=== PATIENT | female | born 1955 | race Hispanic/Latino ===

== ENCOUNTER 2018-01-26 18:44 | Inpatient (IN) | payer MEDICAID ==
[~2018-01-26] VITALS: Ht 144.8 cm; Wt 63.0 kg
[2018-01-26] MEDS ORDERED: GLUCAGON 1MG KIT 1 MG ML IM PRN (21:15)
[2018-01-26] MEDS ORDERED: DEXTROSE 50%-WATER 50 ML DISP.SYRIN IV PRN (21:15)
[2018-01-26 21:30] LABS: BASOPHILS % (AUTO) 0.9 % (0.0-5.0); HEMATOCRIT 30.2 % (36-48); LYMPHOCYTES % (AUTO) 11.4 % (21.0-51.0); MEAN CORPUSCULAR HGB CONC 32.7 g/dL (32.0-36.0); MONOCYTES % (AUTO) 13.2 % (3.0-13.0); NEUTROPHILS % (AUTO) 67.5 % (40.0-77.0); PLATELET COUNT (AUTO) 129 K/uL (130-400); RED BLOOD CELL COUNT(AUTO) 3.28 MIL/uL (4.00-5.50); RED CELL DISTRIBUTION WIDTH 14.6 % (11.0-15.5); WHITE BLOOD COUNT (AUTO) 7.7 K/uL (4.8-10.8)
[2018-01-26 21:44] VITALS: BP 134/66
[2018-01-26 21:47] LABS: ALBUMIN 3.3 g/dL (3.5-5.0); BILIRUBIN,TOTAL 0.3 mg/dL (0.2-1.0); POTASSIUM 5.3 mmol/L (3.5-5.1); TOTAL PROTEIN, SERUM 8.2 g/dL (6.0-8.3)
[2018-01-26 21:50] LABS: CREATININE 8.5 mg/dL (0.5-1.5)
[2018-01-26] MEDS ORDERED: ALBUTEROL SULFATE 0.083% 2.5 MG/3 ML INH IH ONE (22:47)
[2018-01-26] MEDS ORDERED: GUAIFENESIN-DM 200/20 MG 10 ML PO PRN (23:00)
[2018-01-26] MEDS ORDERED: MENTHOL TP PRN (23:00)
[2018-01-26] MEDS ORDERED: ACETAMINOPHEN 325 MG TAB PO PRN (23:00)
[2018-01-26] MEDS ORDERED: GLUCAGON 1MG KIT 1 MG ML IM SCH (23:00)
[2018-01-26] MEDS ORDERED: CLONIDINE HCL 0.1 MG TABLET PO PRN (23:00)
[2018-01-26] MEDS ORDERED: MENT118G TP (23:05)
[2018-01-26] MEDS ORDERED: LISI-613 PO (23:05)
[2018-01-26] MEDS ORDERED: LINA5TAB PO (23:05)
[2018-01-26] MEDS ORDERED: TIMO1DRO2 OP (23:05)
[2018-01-26] MEDS ORDERED: CARV3.12 PO (23:05)
[2018-01-26] MEDS ORDERED: FERSL PO (23:05)
[2018-01-26] MEDS ORDERED: ASCO500T10 PO (23:05)
[2018-01-26] MEDS ORDERED: LEVO50TA11 PO (23:05)
[2018-01-26] MEDS ORDERED: FAMO-136 PO (23:05)
[2018-01-26] MEDS ORDERED: INSU100V12 SQ ×2 (23:05→23:06)
[2018-01-26] MEDS ORDERED: CHOL500045 PO (23:05)
[2018-01-26] MEDS ORDERED: FOLI1TAB85 PO (23:05)
[2018-01-26] MEDS ORDERED: ATOR10 PO (23:05)
[2018-01-26] MEDS ORDERED: LORA10CA9 PO (23:05)
[2018-01-26] MEDS ORDERED: LATA7.5D OP (23:05)
[2018-01-26] MEDS ORDERED: CYCL30DR OP (23:05)
[2018-01-26] MEDS ORDERED: CLON.1 PO (23:05)
[2018-01-26] MEDS ORDERED: GLUC1KIT6 IJ (23:05)
[2018-01-26] MEDS ORDERED: ACET-2247 PO (23:05)
[2018-01-26] MEDS ORDERED: EXEN2VIA SQ (23:05)
[2018-01-26] MEDS ORDERED: GUAI237L82 PO (23:05)
[2018-01-26] MEDS: 1/2 NORMAL SALINE 1,000 ML IV SCH (23:33)
[2018-01-26 23:38] VITALS: BP 126/54
[2018-01-27 03:53] VITALS: BP 125/54
[2018-01-27 04:40] LABS: HEMATOCRIT 29.9 % (36-48); MEAN CORPUSCULAR HEMOGLOBIN 29.5 pg (27.0-33.0); MEAN CORPUSCULAR VOLUME 92.2 fL (79-99); PLATELET COUNT (AUTO) 114 K/uL (130-400); RED BLOOD CELL COUNT(AUTO) 3.25 MIL/uL (4.00-5.50); RED CELL DISTRIBUTION WIDTH 14.3 % (11.0-15.5); WHITE BLOOD COUNT (AUTO) 6.6 K/uL (4.8-10.8)
[2018-01-27] MEDS ORDERED: FERR220E6 PO (04:41)
[2018-01-27 04:51] LABS: ALBUMIN 3.2 g/dL (3.5-5.0); BILIRUBIN,TOTAL 0.3 mg/dL (0.2-1.0); TOTAL PROTEIN, SERUM 7.8 g/dL (6.0-8.3)
[2018-01-27 04:59] LABS: CREATININE 8.7 mg/dL (0.5-1.5)
[2018-01-27] MEDS: INSULIN LISPRO 100 UNIT/ML 3ML SQ SCH ×2 (05:55→16:30)
[2018-01-27] MEDS ORDERED: LEVOTHYROXINE 50 MCG TABLET ONE (06:26)
[2018-01-27] MEDS: LEVOTHYROXINE 50 MCG TABLET PO SCH (06:27)
[2018-01-27] MEDS ORDERED: HUMALOG PO SS1 SQ SCH (07:30)
[2018-01-27] MEDS ORDERED: CHOLECALCIFEROL 5000 UNIT PO SCH (08:00)
[2018-01-27 08:33] VITALS: BP 133/78
[2018-01-27] MEDS ORDERED: [UNRECOGNIZED DRUG - OTHER] IV SCH (09:00)
[2018-01-27] MEDS: CYCLOSPORINE OP SCH ×2 (09:00→20:26)
[2018-01-27] MEDS: FERROUS SULFATE 300 MG/5 ML LIQ UDCUP PO SCH ×4 (09:00→21:00)
[2018-01-27] MEDS: INSULIN GLARGINE 100 UNITS/ML 10 ML VIAL SQ SCH ×2 (09:00→16:30)
[2018-01-27] MEDS: SODIUM BICARBONATE 650 MG TAB PO SCH ×3 (09:30→17:12)
[2018-01-27] MEDS: LINAGLIPTIN 5 MG TABLET PO SCH (09:30)
[2018-01-27] MEDS: ASCORBIC ACID 500 MG TAB PO SCH ×2 (09:32→20:21)
[2018-01-27] MEDS: FOLIC ACID/VITAMIN B COMP W-C 1 MG CAPSULE PO SCH (09:32)
[2018-01-27] MEDS: LORATADINE 10 MG TABLET PO SCH (09:33)
[2018-01-27] MEDS: FAMOTIDINE 20MG TAB 20 MG TAB PO SCH (09:33)
[2018-01-27] MEDS: CARVEDILOL 3.125 MG TABLET PO SCH ×2 (09:33→20:21)
[2018-01-27] MEDS ORDERED: HYDROXYZINE HCL 25 MG TABLET PO PRN (09:55)
[2018-01-27 11:29] VITALS: BP 148/59
[2018-01-27 16:47] VITALS: BP 118/47
[2018-01-27] MEDS: 1/2 NORMAL SALINE 1,000 ML IV SCH (17:15)
[2018-01-27 20:20] VITALS: BP 129/52
[2018-01-27] MEDS: ATORVASTATIN CALCIUM 20 MG TABLET PO SCH (20:21)
[2018-01-27] MEDS: TIMOLOL MALEATE 0.5% 5 ML BOTTLE OP SCH (21:58)
[2018-01-27] MEDS: LATANOPROST 2.5 ML DROPS OP SCH (21:58)
[2018-01-28] VITALS (13 sets, daily range): BP systolic 107–148; BP diastolic 39–74
[2018-01-28 05:04] LABS: HEMATOCRIT 26.6 % (36-48); MEAN CORPUSCULAR HEMOGLOBIN 30.2 pg (27.0-33.0); MEAN CORPUSCULAR HGB CONC 33.3 g/dL (32.0-36.0); MEAN CORPUSCULAR VOLUME 90.8 fL (79-99); PLATELET COUNT (AUTO) 110 K/uL (130-400); RED BLOOD CELL COUNT(AUTO) 2.93 MIL/uL (4.00-5.50); WHITE BLOOD COUNT (AUTO) 5.8 K/uL (4.8-10.8)
[2018-01-28 05:11] LABS: INR 1.04 (0.85-1.15); PROTHROMBIN TIME 10.9 SEC (9.6-11.6)
[2018-01-28 05:15] LABS: BAND NEUTROPHILS % (MANUAL) 1 % (0-2); EOSINOPHILS % (MANUAL) 6 % (1-6); LYMPHOCYTES % (MANUAL) 12 % (22-44); MONOCYTES % (MANUAL) 4 % (2-9); PHOSPHORUS 6.5 mg/dL (2.5-4.9); POTASSIUM 4.5 mmol/L (3.5-5.1); SEGMENTED NEUTROPHILS % 77 % (40-70)
[2018-01-28 05:16] LABS: MAN.DIFF COMMENT-IMPRESSION MANUAL DIFFERENTIAL; PLATELET MORPHOLOGY COMMENT SLIGHTLY DECREASED
[2018-01-28 05:20] LABS: CREATININE 8.9 mg/dL (0.5-1.5)
[2018-01-28 05:31] LABS: APPEARANCE,URINE Cloudy (CLEAR); BILIRUBIN,URINE Negative (NEGATIVE); COLOR,URINE Yellow (YELLOW); GLUCOSE, URINE (UA) Negative (NEGATIVE); KETONES,URINE Trace mg/dL (NEGATIVE); LEUKOCYTE ESTERASE ,URINE Large (NEGATIVE); NITRATE,URINE Negative (NEGATIVE); OCCULT BLOOD,URINE Negative (NEGATIVE); PROTEIN,URINE POS 2+ (NEGATIVE); UROBILINOGEN,URINE 0.2 mg/dL (0.2-1.0)
[2018-01-28 05:34] LABS: CREATININE,URINE RANDOM 112 mg/dL (30-135); PROTEIN,URINE RANDOM 152.9 mg/dL (0-11.9)
[2018-01-28 05:40] LABS: BACTERIA,URINE Moderate /HPF (None Seen); MUCUS,URINE Moderate LPF (None Seen); RBC,URINE 0-1 /HPF (0-1); SQUAMOUS EPITHELIAL CELL,UR Moderate /HPF (0-2)
[2018-01-28] MEDS: LEVOTHYROXINE 50 MCG TABLET PO SCH (05:48)
[2018-01-28 05:55] LABS: % IRON SATURATION 146.5 % (22-44)
[2018-01-28] MEDS: INSULIN LISPRO 100 UNIT/ML 3ML SQ SCH ×2 (06:13→16:30)
[2018-01-28] MEDS: FAMOTIDINE 20MG TAB 20 MG TAB PO SCH (08:00)
[2018-01-28] MEDS: FOLIC ACID/VITAMIN B COMP W-C 1 MG CAPSULE PO SCH (08:00)
[2018-01-28] MEDS: LORATADINE 10 MG TABLET PO SCH (08:00)
[2018-01-28] MEDS: ASCORBIC ACID 500 MG TAB PO SCH ×2 (08:00→21:29)
[2018-01-28] MEDS: SODIUM BICARBONATE 650 MG TAB PO SCH (08:00)
[2018-01-28] MEDS: CARVEDILOL 3.125 MG TABLET PO SCH (08:01)
[2018-01-28] MEDS: FERROUS SULFATE 300 MG/5 ML LIQ UDCUP PO SCH ×2 (08:06→08:21)
[2018-01-28] MEDS: CYCLOSPORINE OP SCH ×2 (08:21→21:00)
[2018-01-28] MEDS: LINAGLIPTIN 5 MG TABLET PO SCH (08:21)
[2018-01-28] MEDS: INSULIN GLARGINE 100 UNITS/ML 10 ML VIAL SQ SCH ×2 (08:21→16:30)
[2018-01-28] MEDS ORDERED: EPOETIN ALFA 10,000 UNIT/ML VIAL SQ SCH (09:00)
[2018-01-28] MEDS ORDERED: LIDOCAINE HCL 1% MDV 50ML VIAL ONE (09:28)
[2018-01-28 09:35] LABS: HEMATOCRIT 27.2 % (36-48); MEAN CORPUSCULAR HEMOGLOBIN 30.4 pg (27.0-33.0); MEAN CORPUSCULAR HGB CONC 33.3 g/dL (32.0-36.0); MEAN CORPUSCULAR VOLUME 91.3 fL (79-99); PLATELET COUNT (AUTO) 100 K/uL (130-400); RED BLOOD CELL COUNT(AUTO) 2.98 MIL/uL (4.00-5.50); RED CELL DISTRIBUTION WIDTH 14.1 % (11.0-15.5); WHITE BLOOD COUNT (AUTO) 5.4 K/uL (4.8-10.8)
[2018-01-28 09:45] LABS: POTASSIUM 4.6 mmol/L (3.5-5.1)
[2018-01-28 10:09] LABS: INR 1.05 (0.85-1.15)
[2018-01-28 10:15] LABS: CREATININE 8.8 mg/dL (0.5-1.5)
[2018-01-28 13:53] LABS: HEMOGLOBIN A1C 5.7 % (4.0-6.0)
[2018-01-28 13:59] LABS: ALBUMIN 2.8 g/dL (3.5-5.0)
[2018-01-28] MEDS ORDERED: HEPARIN SODIUM 5000UNIT/ML 1ML VIAL IJ PRN (15:45)
[2018-01-28] MEDS ORDERED: 0.9% SODIUM CHLORIDE 250 ML IV BAG IV PRN (15:45)
[2018-01-28] MEDS ORDERED: ALBUMIN (HUMAN) 25% 100 ML IV PRN (15:45)
[2018-01-28] MEDS ORDERED: SODIUM CHLORIDE 0.9% 1000ML 1,000 ML IV PRN (15:45)
[2018-01-28] MEDS: TIMOLOL MALEATE 0.5% 5 ML BOTTLE OP SCH (21:29)
[2018-01-28] MEDS: ATORVASTATIN CALCIUM 20 MG TABLET PO SCH (21:29)
[2018-01-28] MEDS: LATANOPROST 2.5 ML DROPS OP SCH (21:30)
[2018-01-29 03:36] VITALS: BP 125/57
[2018-01-29] MEDS: LEVOTHYROXINE 50 MCG TABLET PO SCH (06:19)
[2018-01-29] MEDS: INSULIN LISPRO 100 UNIT/ML 3ML SQ SCH ×2 (06:19→16:30)
[2018-01-29 08:00] VITALS: BP 126/64
[2018-01-29 08:19] LABS: HEPATITIS Bs ANTIGEN SCREEN P Negative (Negative)
[2018-01-29] MEDS: INSULIN GLARGINE 100 UNITS/ML 10 ML VIAL SQ SCH ×2 (08:43→16:30)
[2018-01-29] MEDS: CYCLOSPORINE OP SCH ×2 (09:00→20:12)
[2018-01-29] MEDS: ASCORBIC ACID 500 MG TAB PO SCH ×2 (09:00→20:15)
[2018-01-29] MEDS: FAMOTIDINE 20MG TAB 20 MG TAB PO SCH (09:00)
[2018-01-29] MEDS: LORATADINE 10 MG TABLET PO SCH (09:00)
[2018-01-29] MEDS: FOLIC ACID/VITAMIN B COMP W-C 1 MG CAPSULE PO SCH (09:00)
[2018-01-29] MEDS: LINAGLIPTIN 5 MG TABLET PO SCH (09:00)
[2018-01-29 11:00] VITALS: BP 112/58
[2018-01-29 16:00] VITALS: BP 107/58
[2018-01-29] MEDS: TIMOLOL MALEATE 0.5% 5 ML BOTTLE OP SCH (20:13)
[2018-01-29] MEDS: ATORVASTATIN CALCIUM 20 MG TABLET PO SCH (20:14)
[2018-01-29] MEDS: LATANOPROST 2.5 ML DROPS OP SCH (20:14)
[2018-01-29 20:42] VITALS: BP 125/58
[2018-01-30] VITALS (23 sets, daily range): BP systolic 102–145; BP diastolic 46–71
[2018-01-30] MEDS: LEVOTHYROXINE 50 MCG TABLET PO SCH (05:00)
[2018-01-30] MEDS: INSULIN LISPRO 100 UNIT/ML 3ML SQ SCH ×2 (06:54→20:58)
[2018-01-30] MEDS ORDERED: SODIUM BICARB [NEONATAL] 4.2% 10ML SYG ONE (07:10)
[2018-01-30] MEDS ORDERED: BUPIVACAINE/PF 0.25% 30ML VIAL IJ ONE (07:10)
[2018-01-30] MEDS ORDERED: OCTYL 2-CYANOACRYLATE 1 EACH TP ONE (07:10)
[2018-01-30] MEDS ORDERED: PAPAVERINE HCL 30 MG/ML 2ML VIAL ONE (07:10)
[2018-01-30] MEDS ORDERED: THROMBIN-JMI 20000 UNIT KIT TP ONE (07:10)
[2018-01-30] MEDS ORDERED: ESMOLOL HCL 10 MG/ML 10 ML VIAL ONE (07:25)
[2018-01-30] MEDS ORDERED: FENTANYL CITRATE PF 50 MCG/1 ML 2ML VIAL ONE ×3 (07:25→10:02)
[2018-01-30] MEDS ORDERED: LIDOCAINE PF 2% 5ML ABBOJECT ONE (07:25)
[2018-01-30] MEDS ORDERED: PROPOFOL 10 MG/ML 20ML VIAL IV ONE (07:25)
[2018-01-30] MEDS ORDERED: ONDANSETRON HCL 4 MG/2 ML VIAL ONE (07:25)
[2018-01-30] MEDS ORDERED: ROCURONIUM 10MG/1ML SYR 10 MG/ML ML ONE (07:26)
[2018-01-30 07:39] LABS: CREATININE 5.1 mg/dL (0.5-1.5); POTASSIUM 3.1 mmol/L (3.5-5.1)
[2018-01-30] MEDS ORDERED: DEXAMETHASONE SOD PHOSPHATE 10MG/ML 1ML VIAL ONE (08:21)
[2018-01-30] MEDS ORDERED: CEFAZOLIN SODIUM 1 GM VIAL ONE (08:30)
[2018-01-30] MEDS ORDERED: PHENYLEPHRINE HCL 10 MG/ML 1ML VIAL IV ONE (08:40)
[2018-01-30] MEDS ORDERED: EPHEDRINE SULFATE 50 MG/ML AMPULE ONE (08:41)
[2018-01-30] MEDS: FOLIC ACID/VITAMIN B COMP W-C 1 MG CAPSULE PO SCH (09:00)
[2018-01-30] MEDS: LINAGLIPTIN 5 MG TABLET PO SCH (09:00)
[2018-01-30] MEDS: INSULIN GLARGINE 100 UNITS/ML 10 ML VIAL SQ SCH ×3 (09:00→21:19)
[2018-01-30] MEDS: FAMOTIDINE 20MG TAB 20 MG TAB PO SCH (09:00)
[2018-01-30] MEDS: CYCLOSPORINE OP SCH ×2 (09:00→21:00)
[2018-01-30] MEDS: ASCORBIC ACID 500 MG TAB PO SCH ×2 (09:00→21:05)
[2018-01-30] MEDS: LORATADINE 10 MG TABLET PO SCH (09:00)
[2018-01-30] MEDS ORDERED: GLYCOPYRROLATE 1 MG/5 ML SYRINGE ONE (09:04)
[2018-01-30] MEDS: ATORVASTATIN CALCIUM 20 MG TABLET PO SCH (21:05)
[2018-01-30] MEDS: TIMOLOL MALEATE 0.5% 5 ML BOTTLE OP SCH (21:06)
[2018-01-30] MEDS: LATANOPROST 2.5 ML DROPS OP SCH (21:07)
[2018-01-31 00:04] VITALS: BP 113/55
[2018-01-31 04:08] VITALS: BP 113/54
[2018-01-31 04:36] LABS: HEMATOCRIT 24.1 % (36-48); MEAN CORPUSCULAR HEMOGLOBIN 30.2 pg (27.0-33.0); MEAN CORPUSCULAR HGB CONC 33.8 g/dL (32.0-36.0); MEAN CORPUSCULAR VOLUME 89.6 fL (79-99); PLATELET COUNT (AUTO) 101 K/uL (130-400); RED BLOOD CELL COUNT(AUTO) 2.69 MIL/uL (4.00-5.50); RED CELL DISTRIBUTION WIDTH 13.8 % (11.0-15.5); WHITE BLOOD COUNT (AUTO) 8.6 K/uL (4.8-10.8)
[2018-01-31 04:41] LABS: BAND NEUTROPHILS % (MANUAL) 7 % (0-2); LYMPHOCYTES % (MANUAL) 13 % (22-44); MAN.DIFF COMMENT-IMPRESSION MANUAL DIFFERENTIAL; MONOCYTES % (MANUAL) 11 % (2-9); PLATELET MORPHOLOGY COMMENT DECREASED; SEGMENTED NEUTROPHILS % 69 % (40-70)
[2018-01-31 04:46] LABS: CREATININE 6.1 mg/dL (0.5-1.5); PHOSPHORUS 4.6 mg/dL (2.5-4.9); POTASSIUM 3.3 mmol/L (3.5-5.1)
[2018-01-31] MEDS: INSULIN LISPRO 100 UNIT/ML 3ML SQ SCH (06:52)
[2018-01-31] MEDS: LEVOTHYROXINE 50 MCG TABLET PO SCH (06:56)
[2018-01-31 07:52] VITALS: BP 131/59
[2018-01-31] MEDS: LINAGLIPTIN 5 MG TABLET PO SCH (09:00)
[2018-01-31] MEDS: INSULIN GLARGINE 100 UNITS/ML 10 ML VIAL SQ SCH (09:00)
[2018-01-31] MEDS: CYCLOSPORINE OP SCH (09:00)
[2018-01-31 11:08] VITALS: BP 108/52
[2018-01-31] MEDS: FOLIC ACID/VITAMIN B COMP W-C 1 MG CAPSULE PO SCH (12:50)
[2018-01-31] MEDS: FAMOTIDINE 20MG TAB 20 MG TAB PO SCH (12:50)
[2018-01-31] MEDS: ASCORBIC ACID 500 MG TAB PO SCH (12:50)
[2018-01-31] MEDS: LORATADINE 10 MG TABLET PO SCH (12:50)
[2018-02-02] MEDS ORDERED: EXENATIDE SQ SCH (09:00)
[2018-02-02] MEDS ORDERED: CHOLECALCIFEROL 5000 UNIT PO SCH (09:00)
== END 2018-01-31 16:08 | DRG 444 ==
LOC: EDH 18:44 → EDHIP 18:45 → 4BH 20:56
PROVIDERS: ADMIT Internal Medicine; ATTEND Internal Medicine
PROC: 5A1D70Z Performance of Urinary Filtration, Intermittent, Less than 6 Hours Per Day (ICD-10-PCS; 2018-01-28)
PROC: 02H633Z Insertion of Infusion Device into Right Atrium, Percutaneous Approach (ICD-10-PCS; 2018-01-28)
PROC: B244ZZZ Ultrasonography of Right Heart (ICD-10-PCS; 2018-01-28)
PROC: 5A1D70Z Performance of Urinary Filtration, Intermittent, Less than 6 Hours Per Day (ICD-10-PCS; 2018-01-29)
PROC: 03180ZD Bypass Left Brachial Artery to Upper Arm Vein, Open Approach (ICD-10-PCS; principal; 2018-01-30 08:02)
PROC: 5A1D70Z Performance of Urinary Filtration, Intermittent, Less than 6 Hours Per Day (ICD-10-PCS; 2018-01-31)
DX: I12.0 Hypertensive chronic kidney disease with stage 5 chronic kidney disease or end stage renal disease (principal); N17.9 Acute kidney failure, unspecified; D69.6 Thrombocytopenia, unspecified; E11.22 Type 2 diabetes mellitus with diabetic chronic kidney disease; N18.6 End stage renal disease; L29.9 Pruritus, unspecified; E78.5 Hyperlipidemia, unspecified; E03.9 Hypothyroidism, unspecified; Z66 Do not resuscitate; D63.8 Anemia in other chronic diseases classified elsewhere; K21.9 Gastro-esophageal reflux disease without esophagitis; Z91.15 Patient's noncompliance with renal dialysis; Z79.4 Long term (current) use of insulin; Z86.73 Personal history of transient ischemic attack (TIA), and cerebral infarction without residual deficits; Z99.2 Dependence on renal dialysis; Z98.42 Cataract extraction status, left eye; Z98.41 Cataract extraction status, right eye
CPT/HCPCS: 36415; 36558; 71045; 76770; 77001; 80048; 80053; 80061; 81001; 82040; 82570; 82728; 82948; 83036; 83540; 83550; 84100; 84156; 84439; 84443; 85025; 85027; 85610; 85730; 86701; 86704; 86706; 87340; 87390; 87520; 90935; 93005; 93971; 94664; C1750; J0690; J0885; J1100; J1644; J2001; J2370; J2405; J2440; J2704; J3010; J3490; J7030; P9046

== ENCOUNTER 2021-09-01 14:55 | Emergency (ER) | payer MEDICARE ==
[~2021-09-01] VITALS: Ht 157.5 cm; Wt 64.1 kg
[~2021-09-01 14:55] MED LIST: ACET-2247 PO; ASCO500T10 PO; ATOR10 PO; CARV3.12 PO; CHOL500045 PO; CLON0.1T2 PO; CYCL30DR OP; EXEN2VIA SQ; FAMO-136 PO; FERR220E6 PO; FOLI1TAB85 PO; GLUC1KIT6 IJ; GUAI237L82 PO; INSU100V12 SQ; LATA7.5D OP; LEVO50TA11 PO; LINA5TAB PO; LISI20TA24 PO; LORA10CA9 PO; MENT118G TP; TIMO1DRO2 OP
[2021-09-01] MEDS: DEXTROSE 50%-WATER 50 ML DISP.SYRIN IV ONE (15:00)
[2021-09-01 15:14] VITALS: BP 214/86
== END 2021-09-01 17:50 | disposition home or self-care (01) ==
LOC: EDH 14:55
DX: E11.649 Type 2 diabetes mellitus with hypoglycemia without coma (principal); Z79.899 Other long term (current) drug therapy
CPT/HCPCS: 82948 ×3; 96374; 99283; J7070